=== PATIENT | female | born 2000 | race Caucasian/White ===

== ENCOUNTER 2023-07-08 10:42 | Emergency (ER) | payer OTHER, MEDICAID ==
[~2023-07-08] VITALS: Ht 160 cm; Wt 85.5 kg
[2023-07-08 11:22] LABS: BASO # 0.01 K/mm3 (0.02-0.10); EOS # 0.32 K/mm3 (0.04-0.40); EOS % 3.4 % (1.0-5.0); HEMATOCRIT 39.8 % (37.0-47.0); HEMOGLOBIN 12.9 g/dL (12.5-16.0); LYMPH# 1.58 K/mm3 (1.50-4.00); MEAN CELL VOLUME 99 fl (78-100); MEAN CORPUSCULAR HEMOGLOBIN 32 pg (27-31); MEAN CORPUSCULAR HGB CONC 32 g/dL (33-37); MEAN PLATELET VOLUME 9.5 fl (7.4-10.4); MONO # 0.68 K/mm3 (0.20-0.80); NEU # 6.83 K/mm3 (1.40-6.50); PLATELET COUNT 121 K/mm3 (130-400); RED BLOOD COUNT 4.04 M/mm3 (4.10-5.30); RED CELL DISTRIBUTION WIDTH 11.9 % (11.5-14.5); WHITE BLOOD COUNT 9.4 K/mm3 (4.8-10.8)
[2023-07-08 12:00] LABS: D-DIMER 3.84 mg/L FEU (0.15-0.50)
[2023-07-08 12:48] VITALS: BP 108/69
== END 2023-07-08 12:49 | disposition home or self-care (01) ==
LOC: ED 10:42
PROVIDERS: Family Medicine
DX: M79.604 Pain in right leg (principal); R79.89 Other specified abnormal findings of blood chemistry
CPT/HCPCS: J1650

== ENCOUNTER 2023-07-09 13:10 | Outpatient (RCR) | payer OTHER, MEDICAID ==
[~2023-07-09] VITALS: Ht 160 cm; Wt 85.5 kg
[2023-07-09 13:32] VITALS: BP 111/73
== END 2023-07-11 10:46 | disposition home or self-care (01) ==
LOC: AMSURD 13:10
DX: M79.604 Pain in right leg (principal); M79.89 Other specified soft tissue disorders; R79.89 Other specified abnormal findings of blood chemistry
CPT/HCPCS: J1650